=== PATIENT | female | born 1925 | race Caucasian/White ===

== ENCOUNTER 2017-03-31 12:50 | Outpatient (CLI) | payer OTHER, MEDICARE ==
--- NOTE | 2017-03-31 17:45 | DIAGNOSTIC IMAGING REPORT ---
REFERRING PHYSICIAN/PROVIDER: Rochelle Garnett MD CONSULTING [employer] OPERATOR: Jorge Link MD PROCEDURE: M-mode 2D echocardiography with spectral and color flow Doppler TECHNICAL QUALITY: Adequate INDICATION: DYSPNEA ON EXERTION RHYTHM DURING PROCEDURE: Normal sinus rhythm INTERPRETATIONS: LEFT VENTRICLE: The left ventricular chamber size is within normal limits. The proximal interventricular septal is mildly thickened measuring at 1.2 cm and the left ventricular posterior wall thickness is within normal limits. The left ventricular ejection fraction is normal with an estimated ejection fraction of 65%. There are no focal wall motion abnormalities. There is LV grade 1 diastolic dysfunction. RIGHT VENTRICLE: The RV is grossly normal in function and size. ATRIA: The left atrial chamber size is within normal limits. It is 21.4 ml/meter2. The right atrial chamber size is grossly normal in size. There is no gross evidence of an atrial septal defect. MITRAL VALVE: There is mild mitral annular calcification. There is at least mild thickening of the mitral leaflets. There is trace mitral regurgitation. AORTIC VALVE: The aortic valve is trileaflet. There is at least mild aortic sclerosis without significant stenosis. There is trace aortic regurgitation. TRICUSPID VALVE: There is mild tricuspid regurgitation. The leaflets are thin and pliable. The right ventricular systolic pressure is 33 mmHg assuming a right atrial pressure of 3 mmHg. PULMONIC VALVE: Pulmonic valve has normal structure and normal function. There is trace pulmonic regurgitation. GREAT VESSELS: The aortic root and the ascending aorta are both within normal limits. The IVC is of normal size and collapses more than 50% during respiration which is consistent with a low right atrial pressure of 3 mmHg. PERICARDIUM: There is no evidence of pericardial effusion. IMPRESSION: 1. There is normal LV and RV systolic function with left ventricular grade 1 diastolic dysfunction. 2. The right ventricular systolic pressure is 33 mmHg. 3. There is no evidence of significant valvular heart disease. 4. Both the left and right atrial chamber sizes are grossly normal in size. 5. The aortic root is within normal limits.
== END 2017-03-31 23:00 ==
LOC: US SRH 12:50
DX: R06.00 Dyspnea, unspecified (principal)